=== PATIENT | female | born 1995 | race Caucasian/White ===

== ENCOUNTER 2020-05-19 02:21 | Emergency (ER) | payer SELFPAY ==
[2020-05-19 03:37] LABS: Anion Gap 10 (12-20); Blood Urea Nitrogen 9 mg/dL (9-16); Carbon Dioxide 24 mmol/L (22-29); Chloride 107 mmol/L (96-108); Estimated Glomerular Filt Rate > 60; Glucose Random 103 mg/dL (60-115); Potassium 4.3 mmol/l (3.3-5.1); Sodium 137 mmol/L (135-145)
[2020-05-19 03:38] LABS: Calcium 8.8 mg/dL (8.4-10.2)
[2020-05-19 04:53] LABS: Basophils Absolute Auto 0.1 X10*3/uL (0.0-0.2); MANUAL DIFF FLAG SCAN; PLT CLUMP 1; Platelet Count 202 X10*3/uL (160-400); SCAN SMEAR FLAG 1; White Blood Count 8.7 X10*3/uL (4.8-10.8)
[2020-05-19 05:12] LABS: Hematocrit 38.5 % (37-47); Hemoglobin 12.5 g/dl (12.0-16.0); Mean Corpuscular Hemoglobin 26.9 pg (27.0-33.0); Red Blood Count 4.64 X10*6/uL (4.20-5.50)
[2020-05-19 05:13] LABS: Basophils Percent Auto 0.8 % (0-2); Eosinophils Absolute Auto 0.1 X10*3/uL (0.0-0.4); Eosinophils Percent Auto 1.6 % (0-4); Imm Gran Abs Auto 0.02 X10*3/uL (0.00-0.03); Imm Gran Pct Auto 0.2 % (0.0-0.4); Lymphocytes Absolute Auto 2.1 X10*3/uL (1.2-4.9); Lymphocytes Percent Auto 24.5 % (20-40); Mean Corpuscular HGB Conc 32.5 g/dl (31.0-35.0); Mean Platelet Volume 11.8 fL (9.4-12.3); Monocytes Absolute Auto 0.7 X10*3/uL (0.1-1.2); Monocytes Percent Auto 8.1 % (2-11); Neutrophils Absolute Auto 5.6 X10*3/uL (2.0-8.3); Neutrophils Percent Auto 64.8 % (45-73); Red Cell Distribution Width 12.8 % (11.0-16.0)
[2020-05-19 05:17] LABS: Appearance Urine HAZY; Color Urine YELLOW; Glucose Urine UA NEG (NEG); PH 7.5 (5.0-8.0); Specific Gravity - Urine 1.015 (1.005-1.025); Urine Blood 3+ (NEG); Urine Ketones NEG (NEG); Urine Protein 2+ MG/DL (NEG-TRACE)
[2020-05-19 05:18] LABS: Leukocyte Esterase Urine 2+ (NEG); Nitrite Urine NEG (NEG); RBC Urine 50-75 /HPF (0); UPreg QC Valid YES; Urine Pregnancy NEGATIVE (NEGATIVE)
[2020-05-19 05:19] LABS: Bacteria Urine TRACE /LPF; Squamous Epithelial Cell Urine 1+ /LPF
[2020-05-19 05:43] LABS: SLIDE REVIEW VERIFIED
== END 2020-05-19 03:53 | disposition home or self-care (01) ==
PROVIDERS: Emergency Provider Emergency Medicine
DX: R30.0 Dysuria (principal); R10.30 Lower abdominal pain, unspecified
CPT/HCPCS: 36415; 80048; 81001; 81003; 81025; 85025; 96361; 96374; 99284

== ENCOUNTER 2020-05-29 18:30 | Emergency (ER) | payer SELFPAY ==
[2020-05-29 19:06] VITALS: BP 130/84; PULSE 101; RESP 16; TEMP 36.8; O2SAT 99; BMI 35.2
[2020-05-29 20:46] VITALS: BP 140/83; PULSE 101; RESP 19; TEMP 37.1; O2SAT 99
--- NOTE | 2020-05-29 21:04 | ED_ITS ---
HPI - Anxiety General Chief Complaint: Anxiety Stated Complaint: panic attack Time Seen by Provider: 05/29/20 20:53 Related Data Previous Rx's Medication Instructions Recorded lorazepam [Ativan] 0.5 mg PO BID PRN #10 tab 05/29/20 Allergies Allergy/AdvReac Type Severity Reaction Status Date / Time red dye [RED DYE] Allergy Unknown UNKNOWN Verified 05/29/20 21:15 Review of Systems Review of Systems: Constitutional: No Weight loss, No Fever, No Chills, No Night Sweats, No Fatigue, No Malaise ENT/Mouth: No Hearing loss, No Ear Pain, No Nasal Congestion, No Sinus Pain, No Hoarseness, No sore throat, No Rhinorrhea, No Swallowing Difficulty Eyes: No Eye Pain, No Swelling, No Redness, No Foreign Body, No Discharge, No Vision Changes Cardiovascular: No Chest Pain, No SOB, No Dyspnea on Exertion, No Orthopnea, No Edema, No Palpitations Respiratory: No Cough, No Sputum, No Wheezing, No Smoke Exposure, No Dyspnea Gastrointestinal: No Nausea, No Vomiting, No Diarrhea, No Constipation, No abdominal Pain, No Hematochezia, No Melena Genitourinary: no irregular bleeding, No Dysuria, No Urinary Frequency, No Hematuria, No Urinary Incontinence, No Urgency, No Flank Pain, No Urinary Flow Changes, No Hesitancy Musculoskeletal: No joint pain, No Myalgias, No Joint Swelling Skin: No Skin Lesions, No rash Neuro: No Weakness, No Numbness, No Paresthesias, No Loss of Consciousness, No Dizziness, No Headache Psych: No Anxiety/Panic, No Depression, No SI/HI/AH/VH, No Social Issues, Heme/Lymph: No Bruising, No Bleeding,No Lymphadenopathy Endocrine: No Polyuria, No Polydipsia, No Temperature Intolerance [facility] Past Medical History Attestation statement: The following information was validated with the patient. Medical History Anxiety Asthma Depression Dissociative identity disorder Schizophrenia Scoliosis Social History Social History Smoking Status: Former smoker Use of substances other than those prescribed or required for medical reasons: Yes Substance Use Type: Marijuana Substance Use Frequency: Occasionally Advance Directives: No Advance Directives Information Provided: Yes Physical Exam Vital Signs: Vital Signs: Vital Signs Temp Pulse Resp BP Pulse Ox 05/29/20 20:46 98.8 F 101 H 19 140/83 H 99 05/29/20 19:06 98.3 F 101 H 16 130/84 99 Body Mass Index 35.2 Appearance: Alert. Oriented X3. No acute distress. Eyes: Pupils equal, round and reactive to light. ENT: Pharynx normal. Neck: Normal inspection. Neck supple. CVS: Normal heart rate and rhythm. Pulses normal. Respiratory: No respiratory distress. Breath sounds normal. Abdomen: Soft and nontender. Skin: Skin warm and dry. Normal skin color. Normal skin turgor. Extremities: No lower extremity edema. No lower extremity edema. Neuro: Oriented X 3. No motor deficit. No sensory deficit. Discharge Plan Discharge Clinical Impression: Acute anxiety, Panic disorder, Hyperventilation Patient Disposition: Home, Self-Care Instructions: Anxiety (ED), Panic Attack (ED) Additional Instructions: you were evaluated for anxiety and a panic attack. Please follow-up with [facility] care physician and/or outpatient psychiatry. We provided you with a prescription for Ativan. Please use medication as directed. Thank you for choosing this emergency department for evaluation. Please follow-up with primary care physician as needed. Return to the emergency department for any new, concerning, or worsening symptoms. Prescriptions: New lorazepam [Ativan] 0.5 mg tablet 0.5 mg PO BID PRN (Reason: anxiety) Qty: 10 RF: 0 Interventions: ED Discharge Assessment Last Done: 05/29/20 23:16 Discharge Date/Time: 05/29/20 23:18
[2020-05-29] MEDS: LORazepam 1 MG TABLET 2 MG PO (21:10)
--- NOTE | 2020-05-30 00:32 | ED.ANXIETY ---
HPI - Anxiety General Chief Complaint: Anxiety Stated Complaint: panic attack Time Seen by Provider: 05/29/20 20:53 Source: patient Mode of arrival: ambulatory Limitations: no limitations History of Present Illness HPI narrative: 24-year-old female presents with anxiety and panic. States that she has been feeling significant anxiety for 3 days and started with a panic attack at 2:00 a.m.. She was unable to maintain control of her emotions and does not have any medications to help with her anxiety. her anxiety is accompanied with shortness breath and palpitations. She does have a significant history of anxiety and panic in the past. She does not report any chest pain or pressure, abdominal pain and distention, fevers, chills, nausea, vomiting, diarrhea, constipation, and edema. MD complaint: anxiety, heart racing and shortness of breath Onset (ago): day(s) ( Three) Symptoms: palpitations and sense of impending doom Severity: moderate Quality: constant Place: home History of similar episodes: Yes Provoking factors: emotional stress Relieving factors: nothing Exacerbating factors: thinking about event Associated symptoms: denies other symptoms Related Data Previous Rx's Medication Instructions Recorded lorazepam [Ativan] 0.5 mg PO BID PRN #10 tab 05/29/20 Allergies Allergy/AdvReac Type Severity Reaction Status Date / Time red dye [RED DYE] Allergy Unknown UNKNOWN Verified 05/29/20 21:15 Review of Systems Review of Systems: Constitutional: No Fever, No Chills ENT/Mouth: No Ear Pain, No Nasal Congestion, No sore throat Eyes: No Eye Pain, No Swelling, No Redness Cardiovascular: positive shortness breath No Chest Pain Respiratory: No Cough, No Sputum, No Dyspnea Gastrointestinal: No Nausea, No Vomiting, No Diarrhea, No Hematochezia, No Melena Genitourinary: No Dysuria, No Urinary Frequency, No Hematuria Musculoskeletal: No Myalgias Skin: No Skin Lesions, No rash Neuro: No Weakness, No Numbness, No Paresthesias, No Dizziness, No Headache Psych: positive Anxiety, positive Depression, positive SI/HI Heme/Lymph: No Lymphadenopathy Endocrine: No Polyuria, No Polydipsia PMFSH Past Medical History Attestation statement: The following information was validated with the patient. Medical History Anxiety Asthma Depression Dissociative identity disorder Schizophrenia Scoliosis Social History Social History Smoking Status: Former smoker Use of substances other than those prescribed or required for medical reasons: Yes Substance Use Type: Marijuana Substance Use Frequency: Occasionally Advance Directives: No Advance Directives Information Provided: Yes Physical Exam Vital Signs: Vital Signs: Vital Signs Temp Pulse Resp BP Pulse Ox 05/29/20 20:46 98.8 F 101 H 19 140/83 H 99 05/29/20 19:06 98.3 F 101 H 16 130/84 99 Body Mass Index 35.2 Appearance: Alert. Oriented X3. No acute distress. Eyes: Pupils equal, round and reactive to light. ENT: Pharynx normal. Neck: Normal inspection. Neck supple. CVS: Normal heart rate and rhythm. Pulses normal. Respiratory: No respiratory distress. Breath sounds normal. Abdomen: Soft and nontender. Skin: Skin warm and dry. Normal skin color. Normal skin turgor. Extremities: No lower extremity edema Neuro: Oriented X 3. No motor deficit. No sensory deficit. Course Course Course Narrative: patient is in visible distress, anxiety and panic. We will give p.o. Ativan and monitor. Re-evaluation 1 hour after p.o. Ativan administration. Patient is resting comfortably,Patient in no acute distress, resting comfortably on stretcher. Denies thoughts of hurting herself or others now or in the past. Affect appropriate on exam. Discussed importance of outpatient therapy, and getting medications from mental health clinic/psychiatrist. Will treat anxiety with Ativan 0.5 mg tablets, 10 tablets.. Advised on importance of followup. Patient understands and agrees with plan. MDM - Anxiety Differential Diagnosis Differential diagnosis: Likely hyperventilation, panic disorder and acute anxiety Medical Records Attestation: I reviewed the patient's medical records. Lab Data Attestation: I reviewed the patient's lab results. Discharge Plan Discharge Clinical Impression: Acute anxiety, Panic disorder, Hyperventilation Patient Disposition: Home, Self-Care Instructions: Anxiety (ED), Panic Attack (ED) Additional Instructions: you were evaluated for anxiety and a panic attack. Please follow-up with primary care physician and/or outpatient psychiatry. We provided you with a prescription for Ativan. Please use medication as directed. Thank you for choosing this emergency department for evaluation. Please follow-up with primary care physician as needed. Return to the emergency department for any new, concerning, or worsening symptoms. Prescriptions: New lorazepam [Ativan] 0.5 mg tablet 0.5 mg PO BID PRN (Reason: anxiety) Qty: 10 RF: 0 Interventions: ED Discharge Assessment Last Done: 05/29/20 23:16 Discharge Date/Time: 05/29/20 23:18
== END 2020-05-29 23:18 | disposition home or self-care (01) ==
PROVIDERS: Emergency Provider Emergency Medicine Emergency Medical Services
DX: F41.9 Anxiety disorder, unspecified (principal); F41.0 Panic disorder [episodic paroxysmal anxiety]; R06.4 Hyperventilation; F44.9 Dissociative and conversion disorder, unspecified; F12.90 Cannabis use, unspecified, uncomplicated
CPT/HCPCS: 99283; 99284

== ENCOUNTER 2020-09-17 07:57 | Emergency (ER) | payer MEDICAID, SELFPAY ==
[2020-09-17 08:16] VITALS: BP 133/80; PULSE 102; RESP 18; TEMP 36.7; O2SAT 98; BMI 34.0
--- NOTE | 2020-09-17 08:29 | US_ITS ---
EXAMINATION: ULTRASOUND PELVIS COMPLETE. CLINICAL INFORMATION: Left-sided abdominal/flank pain. COMPARISON: None TECHNIQUE: Transabdominal and transvaginal imaging of pelvis is performed. FINDINGS: The uterus is retroverted and retroflexed measuring 10.4 cm in length, 4.0 cm in AP and 5.8 cm in transverse dimension. There is a hypoechoic lesion in the posterior fundus measuring 3.4 x 3.2 x 4.1 cm. Endometrial thickness is 0.5 cm. Right ovary measures 3.0 x 1.8 x 2.0 cm and volume 5.7 mL Left ovary measures 4.8 x 2.6 x 2.5 cm involving 22.6 mL. There is anechoic cyst measuring 2.8 x 1.8 x 2.3 cm. There is normal arterial and venous flow seen to both ovaries. There is no free fluid. US/US pelvic ovarian doppler IMPRESSION: Solitary uterine fibroid. Simple cyst left ovary. Right ovary is unremarkable. There is no free fluid.
--- NOTE | 2020-09-17 08:29 | US_ITS ---
EXAMINATION: ULTRASOUND PELVIS COMPLETE. CLINICAL INFORMATION: Left-sided abdominal/flank pain. COMPARISON: None TECHNIQUE: Transabdominal and transvaginal imaging of pelvis is performed. FINDINGS: The uterus is retroverted and retroflexed measuring 10.4 cm in length, 4.0 cm in AP and 5.8 cm in transverse dimension. There is a hypoechoic lesion in the posterior fundus measuring 3.4 x 3.2 x 4.1 cm. Endometrial thickness is 0.5 cm. Right ovary measures 3.0 x 1.8 x 2.0 cm and volume 5.7 mL Left ovary measures 4.8 x 2.6 x 2.5 cm involving 22.6 mL. There is anechoic cyst measuring 2.8 x 1.8 x 2.3 cm. There is normal arterial and venous flow seen to both ovaries. There is no free fluid. US/US pelvic complete IMPRESSION: Solitary uterine fibroid. Simple cyst left ovary. Right ovary is unremarkable. There is no free fluid.
--- NOTE | 2020-09-17 08:29 | US_ITS ---
EXAMINATION: US RETROPERITONEAL LIMITED (RENAL ONLY) CLINICAL INFORMATION: Left flank pain.. COMPARISON: CT scan of the abdomen and pelvis dated 08/28/2017. TECHNIQUE: Ultrasound of both kidneys was performed. FINDINGS: RIGHT KIDNEY: 12.0 x 4.6 x 4.8 cm (SAG x AP x TRV). The kidney is normal in size, contour, and echogenicity. Renal cortical thickness is normal. No calculi or focal parenchymal lesions. Mild fullness of the renal pelvis without evidence of hydronephrosis. LEFT KIDNEY: 12.3 x 5.1 x 4.6 cm (SAG x AP x TRV). The kidney is normal in size, contour, and echogenicity. Renal cortical thickness is normal. No calculi or focal parenchymal lesions. Mild fullness of the renal pelvis without evidence of hydronephrosis. US/US renal BI IMPRESSION: Normal renal ultrasound.
[2020-09-17] MEDS: 0.9 % Sodium Chloride 1,000 ML 999 ML IV (08:44)
[2020-09-17 08:49] LABS: Basophils Absolute Auto 0.1 X10*3/uL (0.0-0.2); Basophils Percent Auto 0.8 % (0-2); Eosinophils Absolute Auto 0.1 X10*3/uL (0.0-0.4); Eosinophils Percent Auto 1.5 % (0-4); Hematocrit 36.6 % (37-47); Hemoglobin 11.8 g/dl (12.0-16.0); Imm Gran Abs Auto 0.01 X10*3/uL (0.00-0.03); Imm Gran Pct Auto 0.2 % (0.0-0.4); Lymphocytes Absolute Auto 1.6 X10*3/uL (1.2-4.9); Lymphocytes Percent Auto 25.7 % (20-40); MANUAL DIFF FLAG NO; Mean Corpuscular HGB Conc 32.2 g/dl (31.0-35.0); Mean Corpuscular Hemoglobin 25.9 pg (27.0-33.0); Mean Corpuscular Volume 80.4 fL (80-98); Monocytes Absolute Auto 0.5 X10*3/uL (0.1-1.2); Monocytes Percent Auto 8.3 % (2-11); Neutrophils Absolute Auto 3.9 X10*3/uL (2.0-8.3); Neutrophils Percent Auto 63.5 % (45-73); Platelet Count 197 X10*3/uL (160-400); Red Blood Count 4.55 X10*6/uL (4.20-5.50); Red Cell Distribution Width 13.8 % (11.0-16.0); White Blood Count 6.1 X10*3/uL (4.8-10.8)
--- NOTE | 2020-09-17 08:58 | US_ITS ---
EXAMINATION: ULTRASOUND PELVIS COMPLETE. CLINICAL INFORMATION: Left-sided abdominal/flank pain. COMPARISON: None TECHNIQUE: Transabdominal and transvaginal imaging of pelvis is performed. FINDINGS: The uterus is retroverted and retroflexed measuring 10.4 cm in length, 4.0 cm in AP and 5.8 cm in transverse dimension. There is a hypoechoic lesion in the posterior fundus measuring 3.4 x 3.2 x 4.1 cm. Endometrial thickness is 0.5 cm. Right ovary measures 3.0 x 1.8 x 2.0 cm and volume 5.7 mL Left ovary measures 4.8 x 2.6 x 2.5 cm involving 22.6 mL. There is anechoic cyst measuring 2.8 x 1.8 x 2.3 cm. There is normal arterial and venous flow seen to both ovaries. There is no free fluid. US/US transvaginal IMPRESSION: Solitary uterine fibroid. Simple cyst left ovary. Right ovary is unremarkable. There is no free fluid.
[2020-09-17 09:22] LABS: Alanine Aminotransferase 18 U/L (0-31); Alkaline Phosphatase 50 U/L (39-117); Anion Gap 12 (12-20); Aspartate Amino Transferase 18 U/L (5-31); Bilirubin Total 0.8 mg/dL (0.0-1.0); Blood Urea Nitrogen 7 mg/dL (9-16); Calcium 8.5 mg/dL (8.4-10.2); Carbon Dioxide 24 mmol/L (22-29); Chloride 106 mmol/L (96-108); Creatinine Clr Calc Pharmacy 120.6; Estimated Glomerular Filt Rate > 60; Glucose Random 94 mg/dL (60-115); Potassium 3.9 mmol/L (3.3-5.1); Sodium 138 mmol/L (135-145); Total Protein 6.8 g/dL (6.5-8.0)
[2020-09-17 10:01] VITALS: BP 129/93; PULSE 102; RESP 20; TEMP 36.8; O2SAT 98
[2020-09-17 10:22] LABS: Glucose Urine UA NEG (NEG); Leukocyte Esterase Urine NEG (NEG); Nitrite Urine NEG (NEG); PH 6.5 (5.0-8.0); Specific Gravity - Urine 1.015 (1.005-1.025); Urine Blood NEG (NEG); Urine Ketones NEG (NEG); Urine Protein NEG (NEG-TRACE)
[2020-09-17 10:30] LABS: Appearance Urine CLEAR; Color Urine YELLOW
[2020-09-17 10:31] LABS: UPreg QC Valid YES; Urine Pregnancy NEGATIVE (NEGATIVE)
[2020-09-17 11:15] LABS: RBC Urine 0 /HPF (0); Squamous Epithelial Cell Urine 1+ /LPF; WBC Urine 0-2 /HPF (0-4)
[2020-09-17 11:19] VITALS: BP 126/82; PULSE 98; RESP 18; TEMP 36.8; O2SAT 100
--- NOTE | 2020-09-17 11:20 | PC.NURSE ---
patient a&ox3, pt states her pain is now 0/10 and feels she may have been dehydrated as her pain decreased after fluids were given, vss, will continue to monitor.
--- NOTE | 2020-09-17 11:47 | ED.ABDPAIN ---
HPI - Abdominal Pain General Chief Complaint: Abdominal Pain Stated Complaint: Abd pain Time Seen by Provider: 09/17/20 08:25 Source: patient Mode of arrival: ambulatory Limitations: no limitations History of Present Illness HPI narrative: 24-year-old female with history of anxiety disorder presents today with complaint of 2 days of left lower quadrant abdominal pain feels like slight ache today has slight nausea. Has not taken anything [id number]. There is no associated symptoms. There is no vomiting or diarrhea. No vaginal bleeding or discharge. No dysuria. No recent travel or sick contacts or antibiotic use. MD elicited complaint: abdominal pain Pertinent past history: past UTI Onset (ago): day(s) Pain Consistency: intermittent Location: LLQ Quality: aching Radiation: none Exacerbating factors: nothing Relieving factors: nothing Associated symptoms: denies other symptoms Related Data Previous Rx's Medication Instructions Recorded lorazepam [Ativan] 0.5 mg PO BID PRN #10 tab 05/29/20 ibuprofen 800 mg PO Q8H PRN #15 tab 09/17/20 Allergies Allergy/AdvReac Type Severity Reaction Status Date / Time red dye [RED DYE] Allergy Unknown UNKNOWN Verified 05/29/20 21:15 Review of Systems Review of Systems Constitutional: No Weight loss, No Fever, No Chills, No Night Sweats, No Fatigue, No Malaise ENT/Mouth: No Hearing loss, No Ear Pain, No Nasal Congestion, No Sinus Pain, No Hoarseness, No sore throat, No Rhinorrhea, No Swallowing Difficulty Eyes: No Eye Pain, No Swelling, No Redness, No Foreign Body, No Discharge, No Vision Changes Cardiovascular: No Chest Pain, No SOB, No Dyspnea on Exertion, No Orthopnea, No Edema, No Palpitations Respiratory: No Cough, No Sputum, No Wheezing, No Dyspnea Gastrointestinal: + Nausea, No Vomiting, No Diarrhea, No Constipation, + abdominal Pain, No Hematochezia, No Melena Genitourinary: no irregular bleeding, No Dysuria, No Urinary Frequency, No Hematuria, No Urinary Incontinence, No Urgency, No Flank Pain Musculoskeletal: No joint pain, No Myalgias, No Joint Swelling Skin: No Skin Lesions, No rash Neuro: No Weakness, No Numbness, No Paresthesias, No Loss of Consciousness, No Dizziness, No Headache Psych: No Social Issues Heme/Lymph: No Bruising, No Bleeding,No Lymphadenopathy Endocrine: No Polyuria, No Polydipsia, No Temperature Intolerance Yes all other systems are reviewed and are negative Physical Exam Vital Signs: Vital Signs: Last Vital Signs Temp 98.3 F 09/17/20 11:19 Pulse 98 09/17/20 11:19 Resp 18 09/17/20 11:19 BP 126/82 09/17/20 11:19 Pulse Ox 100 09/17/20 11:19 Body Mass Index 34.0 Reviewed Const: General: cooperative and healthy appearing; No acute distress or intoxicated appearing Nutritional Appearance: average body habitus Orientation/consciousness: patient oriented x3 HENMT: Head: Yes normal to inspection Ears: hearing grossly normal bilaterally Eyes: General: appearance normal, both eyes and all related structures Visual Zavala: normal visual zavala by confrontation Neck: Neck: Yes normal visual inspection, No positive Brudzinski's sign, No positive Kernig's sign and No tender Thyroid: Thyroid normal Chest: Chest palpation & inspection: normal inspection of the chest Resp: Effort & Inspection: normal respiratory effort Auscultation: clear to auscultation bilaterally Cardio: Jugular venous distension: no JVD Rhythm: regular rhythm Heart sounds: S1 normal heart sound present and S2 normal heart sound present GI: Inspection: Yes normal to inspection Palpation (GI): Soft to palpation, nontender and no guarding Percussion: Yes normal to percussion Auscultation: normal bowel sounds : General: Yes no CVA tenderness Back/Spine/Pelvis: Back: no CVA tenderness Skin: General skin exam: no rashes or lesions noted Neuro: General: patient oriented x3 Extrem: General: Yes normal to inspection MDM - Abdominal Pain MDM Narrative Medical decision making narrative: Has been resting very comfortably labs overall stable urine without infection. No leukocytosis. Renal ultrasound/pelvic ovarian Doppler done and pending results. After my re-evaluation after labs she reports to me that her pain resolved after the fluids. Upon re-evaluation abdominal exam remains benign. No peritonitis. No evidence of PID. Differential Diagnosis Differential diagnosis: Likely abdominal pain, calculus of kidney, ovarian cyst and renal colic; Unlikely aortic dissection, acute appendicitis, bowel perforation, constipation, diverticulitis, endometriosis, gastroenteritis, gastritis, mesenteric ischemia, pancreatitis, peptic ulcer disease and small bowel obstruction Medical Records Attestation: I reviewed the patient's medical records. Lab Data Attestation: I reviewed the patient's lab results. Result diagrams: 09/17/20 08:44 09/17/20 08:44 Labs: Lab Results 09/17/20 09/17/20 09/17/20 Range/Units 08:44 08:44 10:00 WBC 6.1 (4.8-10.8) X10*3/uL RBC 4.55 (4.20-5.50) X10*6/uL Hgb 11.8 L (12.0-16.0) g/dl Hct 36.6 L (37-47) % MCV 80.4 (80-98) fL MCH 25.9 L (27.0-33.0) pg MCHC 32.2 (31.0-35.0) g/dl RDW 13.8 (11.0-16.0) % Plt Count 197 (160-400) X10*3/uL MPV 11.0 (9.4-12.3) fL Immature Gran % (Auto) 0.2 (0.0-0.4) % Neut % (Auto) 63.5 (45-73) % Lymph % (Auto) 25.7 (20-40) % [place] % (Auto) 8.3 (2-11) % Eos % (Auto) 1.5 (0-4) % Baso % (Auto) 0.8 (0-2) % Lymph # (Auto) 1.6 (1.2-4.9) X10*3/uL [place] # (Auto) 0.5 (0.1-1.2) X10*3/uL Eos # (Auto) 0.1 (0.0-0.4) X10*3/uL Baso # (Auto) 0.1 (0.0-0.2) X10*3/uL Abs Immat Gran (auto) 0.01 (0.00-0.03) X10*3/uL Absolute Neuts (auto) 3.9 (2.0-8.3) X10*3/uL Absolute Nucleated RBC 0.000 (0.0-0.012) X10*3/uL Nucleated RBC % (auto) 0.0 (0.0-0.2) /100WBC Sodium 138 (135-145) mmol/L Potassium 3.9 (3.3-5.1) mmol/L Chloride 106 (96-108) mmol/L Carbon Dioxide 24 (22-29) mmol/L Anion Gap 12 (12-20) BUN 7 L (9-16) mg/dL Creatinine 0.69 (0.5-1.4) mg/dL Estim Creat Clear Calc 120.6 Estimated GFR > 60 Random Glucose 94 (60-115) mg/dL Calcium 8.5 (8.4-10.2) mg/dL Total Bilirubin 0.8 (0.0-1.0) mg/dL AST 18 (5-31) U/L ALT 18 (0-31) U/L Alkaline Phosphatase 50 (39-117) U/L Total Protein 6.8 (6.5-8.0) g/dL Albumin 4.0 (3.5-5.0) g/dL Urine Color YELLOW Urine Appearance CLEAR Urine pH 6.5 (5.0-8.0) Ur Specific [place] 1.015 (1.005-1.025) Urine Protein NEG (NEG-TRACE) MG/DL Urine Glucose (UA) NEG (NEG) MG/DL Urine Ketones NEG (NEG) MG/DL Urine Blood NEG (NEG) Urine Nitrite NEG (NEG) Ur Leukocyte Esterase NEG (NEG) Urine RBC 0 (0) /HPF Urine WBC 0-2 (0-4) /HPF Ur Squamous Epith Cells 1+ /LPF Urine Bacteria NONE /LPF Urine Test NEGATIVE (NEGATIVE) Imaging Data Renal ultrasound: Radiologist's impression: [place] [id number] ReportSigned Patient: Alexander Broderick#: [id number]: 1995Acct:[id number]/Sex: 24 / FADM Date: 09/17/20Loc: [facility]: Ordering Physician: Ovidio Coe NP Date of Service: 09/17/20 Procedure(s): US renal BI Accession Number(s): [id number] cc: Ovidio Coe NP~ EXAMINATION: US RETROPERITONEAL LIMITED (RENAL ONLY) CLINICAL INFORMATION: Left flank pain.. COMPARISON: CT scan of the abdomen and pelvis dated 08/28/2017. TECHNIQUE: Ultrasound of both kidneys was performed. FINDINGS: RIGHT KIDNEY: 12.0 x 4.6 x 4.8 cm (SAG x AP x TRV). The kidney is normal in size, contour, and echogenicity. Renal cortical thickness is normal. No calculi or focal parenchymal lesions. Mild fullness of the renal pelvis without evidence of hydronephrosis. LEFT KIDNEY: 12.3 x 5.1 x 4.6 cm (SAG x AP x TRV). The kidney is normal in size, contour, and echogenicity. Renal cortical thickness is normal. No calculi or focal parenchymal lesions. Mild fullness of the renal pelvis without evidence of hydronephrosis. US/US renal BI IMPRESSION: Normal renal ultrasound. Dictated By:JENNIFER PUENTE MDSigned By:<Electronically signed by JENNIFER PUENTE MD in OV>09/17/20 0959 DD/ 0829TD/TT: Shirt Maker: BEN Pelvic ultrasound/Doppler: Radiologist's impression: [place] [id number] ReportSigned Patient: Alexander Broderick#: [id number]: 1995Acct:[id number]/Sex: 24 FADM Date: 09/17/20Loc: [address]: Ordering Physician: Ovidio Coe NP Date of Service: 09/17/20 Procedure(s): US pelvic ovarian doppler Accession Number(s): [id number] cc: Ovidio Coe NP~ EXAMINATION: ULTRASOUND PELVIS COMPLETE. CLINICAL INFORMATION: Left-sided abdominal/flank pain. COMPARISON: None TECHNIQUE: Transabdominal and transvaginal imaging of pelvis is performed. FINDINGS: The uterus is retroverted and retroflexed measuring 10.4 cm in length, 4.0 cm in AP and 5.8 cm in transverse dimension. There is a hypoechoic lesion in the posterior fundus measuring 3.4 x 3.2 x 4.1 cm. Endometrial thickness is 0.5 cm. Right ovary measures 3.0 x 1.8 x 2.0 cm and volume 5.7 mL Left ovary measures 4.8 x 2.6 x 2.5 cm involving 22.6 mL. There is anechoic cyst measuring 2.8 x 1.8 x 2.3 cm. There is normal arterial and venous flow seen to both ovaries. There is no free fluid. US/US pelvic ovarian doppler IMPRESSION: Solitary uterine fibroid. Simple cyst left ovary. Right ovary is unremarkable. There is no free fluid. Dictated By:BENNIE BARONE MDSigned By:<Electronically signed by BENNIE BARONE MD in OV>09/17/20 1004 DD/ 0829TD/TT: Shirt Maker: [facility] [place] Discharge Plan Discharge Clinical Impression: Ovarian cyst Qualifiers: Laterality: left Qualified Code(s): N83.202 - Unspecified ovarian cyst, left side Patient Disposition: Home, Self-Care Instructions: Ovarian Cyst (ED) Additional Instructions: Your ultrasound of kidneys was within normal limits The ultrasound of the ovaries show simple cyst/fibroid on the left ovary Ibuprofen as needed for pain discomfort These typically resolve by himself and relatively common Follow-up with her primary care doctor as discussed Return if any concerns or worsening symptoms including worsening abdominal pain, fever, vaginal bleeding Thank you Prescriptions: New ibuprofen 800 mg tablet 800 mg PO Q8H PRN (Reason: pain) Qty: 15 RF: 0 No Action lorazepam [Ativan] 0.5 mg tablet 0.5 mg PO BID PRN (Reason: anxiety) Qty: 10 RF: 0 Referrals: Physician,None [Primary Care Provider] - 1 week (Primary care) PMFSH Past Medical History Medical History Anxiety Asthma Depression Dissociative identity disorder Schizophrenia Scoliosis Social History Social History Smoking Status: Former smoker Smoked in Last 30 Days: No Use of substances other than those prescribed or required for medical reasons: No Substance Use Type: Marijuana Advance Directives: No Advance Directives Information Provided: Yes
== END 2020-09-17 12:21 | disposition home or self-care (01) ==
PROVIDERS: Nurse Practitioner Primary Care; Emergency Provider Emergency Medicine
DX: N83.292 Other ovarian cyst, left side (principal); D25.9 Leiomyoma of uterus, unspecified
CPT/HCPCS: 36415; 76775; 76830; 76856; 80053; 81001; 81025; 85025; 93975; 96360; 99284

== ENCOUNTER 2020-09-22 07:57 | Outpatient (REF) | payer MEDICAID, SELFPAY ==
[2020-09-23 13:14] LABS: C. trachomatis RNA TMA NOT DETECTED (NOT DETECTED); N. gonorrhoeae RNA TMA NOT DETECTED (NOT DETECTED)
== END 2020-09-22 07:58 | disposition home or self-care (01) ==
LOC: HO.LAB 07:57
PROVIDERS: Visit Provider Obstetrics & Gynecology
DX: D25.9 Leiomyoma of uterus, unspecified (principal); N83.292 Other ovarian cyst, left side
CPT/HCPCS: 36415; 87491; 87591; 99202

== ENCOUNTER 2021-03-20 12:33 | Outpatient (REF) | payer OTHER, SELFPAY ==
--- NOTE | ~2021-03-20 | US_ITS ---
EXAMINATION: PELVIC ULTRASOUND CLINICAL INFORMATION: Fibroid COMPARISON: Previous pelvic ultrasound August 2020 TECHNIQUE: Transabdominal and transvaginal pelvic ultrasound was performed. Transvaginal exam was performed for better visualization of the uterus and ovaries. FINDINGS: The uterus is retroverted and measures 10 x 5 x 5.5 cm in dimension. No focal uterine lesion is seen. There is a 4.3 x 3.7 x 4.3 cm anterior right fundal uterine fibroid. This measured 3.4 x 3.2 x 4.1 cm on August 2020 exam. No other focal uterine lesion is seen. Endometrial thickness is normal measuring 0.3 cm. The right ovary is slightly enlarged and measures 3.9 x 4.2 x 3.3 cm, volume 28 mL. There is a minimally complex physiologic 3.3 x 3.1 x 2.3 cm right ovarian cyst with daughter cyst. The left ovary is not identified with certainty. There is a small amount of fluid in the pelvis. US/US pelvic complete IMPRESSION: Retroverted uterus. 4.3 x 3.7 x 4.3 cm right anterior fundal uterine fibroid. 3 cm physiologic right ovarian cyst. Left ovary is not identified with certainty.
--- NOTE | ~2021-03-20 | US_ITS ---
EXAMINATION: PELVIC ULTRASOUND CLINICAL INFORMATION: Fibroid COMPARISON: Previous pelvic ultrasound August 2020 TECHNIQUE: Transabdominal and transvaginal pelvic ultrasound was performed. Transvaginal exam was performed for better visualization of the uterus and ovaries. FINDINGS: The uterus is retroverted and measures 10 x 5 x 5.5 cm in dimension. No focal uterine lesion is seen. There is a 4.3 x 3.7 x 4.3 cm anterior right fundal uterine fibroid. This measured 3.4 x 3.2 x 4.1 cm on August 2020 exam. No other focal uterine lesion is seen. Endometrial thickness is normal measuring 0.3 cm. The right ovary is slightly enlarged and measures 3.9 x 4.2 x 3.3 cm, volume 28 mL. There is a minimally complex physiologic 3.3 x 3.1 x 2.3 cm right ovarian cyst with daughter cyst. The left ovary is not identified with certainty. There is a small amount of fluid in the pelvis. US/US transvaginal IMPRESSION: Retroverted uterus. 4.3 x 3.7 x 4.3 cm right anterior fundal uterine fibroid. 3 cm physiologic right ovarian cyst. Left ovary is not identified with certainty.
== END 2021-03-20 12:34 | disposition home or self-care (01) ==
LOC: HO.US 12:33
PROVIDERS: PCP Internal Medicine; Visit Provider Obstetrics & Gynecology
DX: D21.9 Benign neoplasm of connective and other soft tissue, unspecified (principal)
CPT/HCPCS: 76830; 76856

== ENCOUNTER → 2021-03-27 13:47 | Outpatient (BNVA) | payer OTHER, SELFPAY | PROVIDERS: PCP Internal Medicine; Visit Provider Obstetrics & Gynecology ==

== ENCOUNTER 2021-04-16 14:04 | Emergency (ER) | payer OTHER, SELFPAY ==
[2021-04-16 14:08] VITALS: BP 116/83; PULSE 84; RESP 18; TEMP 36.6; O2SAT 99; BMI 33.2
[2021-04-16] MEDS: Amoxicillin/Potassium Clav 875 MG TABLET PO (14:46)
[2021-04-16] MEDS: Diphth,Pertus(ACell),Tet Adult 0.5 ML SYRINGE IM (14:47)
--- NOTE | 2021-04-16 14:52 | ED.ANIMALBIT ---
HPI - Animal Bite General Chief Complaint: Animal Bite Stated Complaint: animal bite Time Seen by Provider: 04/16/21 14:31 Source: patient Mode of arrival: ambulatory Limitations: no limitations History of Present Illness HPI narrative: 25 y/o female presenting to the ER from home after her cat bit her lower right forearm when she was trying to give it a bath just before arrival. She reports 4 puncture wounds from the bite as well as pain. She cleaned out the bite, applied antibiotic ointment and came to the ER for evaluation. Her cat is up to date on his shots. MD complaint: animal bite Onset (ago): minute(s) Animal: cat Description of animal: household pet Mechanism: bite Location - Extremities: right: forearm Pain description: sharp Severity scale (1-10): 6 Context: provoked Treatments prior to arrival: wound dressing(s), irrigation and antibiotic ointment Related Data Patient tetanus UTD: No Home Medications Medication Instructions Recorded Confirmed etonogestrel 68 mg subdermal SUBDERMAL 09/22/20 12/16/20 implant (Nexplanon) amoxicillin 500 mg capsule 500 mg PO TID 12/16/20 12/16/20 propranolol 20 mg tablet 20 mg PO BID PRN 12/16/20 12/16/20 escitalopram oxalate 20 mg tablet 20 mg PO DAILY 03/27/21 Previous Rx's Medication Instructions Recorded ibuprofen 800 mg tablet 800 mg PO Q8H PRN #15 tab 09/17/20 bupropion HCl 150 mg 24 hr tablet, 150 mg PO QAM 30 Days #30 tab 12/16/20 extended release amoxicillin 875 mg-potassium 1 tab PO Q12H #14 tab 04/16/21 clavulanate 125 mg tablet (Augmentin) Allergies Allergy/AdvReac Type Severity Reaction Status Date / Time red dye [RED DYE] Allergy Unknown UNKNOWN Verified 04/16/21 14:08 Review of Systems Review of Systems: Constitutional: No Fever, No Chills Cardiovascular: No Chest Pain, No SOB Respiratory: No Cough, No Sputum Gastrointestinal: No Nausea, No Vomiting, No Diarrhea, No abdominal Pain Musculoskeletal: No joint pain, + Myalgias Skin: + Skin Lesions, No rash Neuro: + Weakness, No Numbness Psych: + Anxiety/Panic Heme/Lymph: No Bruising, No Lymphadenopathy PMFSH Past Medical History Attestation statement: The following information was validated with the patient. Medical History Anxiety Asthma Depression Dissociative identity disorder Insomnia Left lower quadrant abdominal pain Obesity (BMI 30-39.9) Schizophrenia Scoliosis Surgical History No significant past surgical history Family History Family History Other Family history non-contributory Social History Social History Alcohol intake: current Alcohol intake frequency: holidays/special occasions only Substance Use Type: Marijuana Advance Directives: No Advance Directives Information Provided: No Patient : No Current occupational status: employed Current occupation: works as a sort operations supervisor at a local [employer] Physical Exam Vital Signs: Vital Signs: Last Vital Signs Temp 97.8 F 04/16/21 14:08 Pulse 84 04/16/21 14:08 Resp 18 04/16/21 14:08 BP 116/83 04/16/21 14:08 Pulse Ox 99 04/16/21 14:08 Body Mass Index 33.2 Appearance: Alert. Oriented X3. No acute distress. HEENT: normal inspection CVS: Normal heart rate and rhythm. Pulses normal. Respiratory: No respiratory distress. Skin: Skin warm and dry. Normal skin color. Normal skin turgor. No rashes. Extremities: right distal forearm with 2 punctate lesions on both the vental and dorsal aspects of the arm, tedner to touch. normal flexion and extension, ROM of the wrist. NV intact distally. No ecchymosis Neuro: Oriented X 3. No motor deficit. No sensory deficit. Course Course Course Narrative: 25 y/o female presenting with cat bite to her right forearm. Wound was cleaned well with H2O2 and saline. Normal extensor and flexor tendon function. Tenderness around the bites but no cellulitis at this time. Will start on empiric augmentin. Stable for d/c home. Return precautions discussed. Critical Care Time Critical Care Time Critical Care Time: No Discharge Plan Discharge Clinical Impression: Cat bite Qualifiers: Encounter type: initial encounter Qualified Code(s): W55.01XA - Bitten by cat, initial encounter Patient Disposition: Home, Self-Care Instructions: Animal Bite (ED) Additional Instructions: Keep wound clean and covered. Take the prescribed antibiotic as directed - take 1st dose tonight before bed. If you develop worsening pain, redness, swelling or any other concerning symptoms come back to the ER for further evaluation. Prescriptions: New amoxicillin-pot clavulanate [Augmentin] 875-125 mg tablet 1 tab PO Q12H Qty: 14 RF: 0 No Action ibuprofen 800 mg tablet 800 mg PO Q8H PRN (Reason: pain) Qty: 15 RF: 0 amoxicillin 500 mg capsule 500 mg PO TID RF: 0 propranolol 20 mg tablet 20 mg PO BID PRNRF: 0 bupropion HCl 150 mg tablet extended release 24 hr 150 mg PO QAM 30 Days Qty: 30 RF: 3 Nexplanon 68 mg implant subdermal RF: 0 escitalopram oxalate 20 mg tablet 20 mg PO DAILY RF: 0 Stand Alone Forms: Work/School Release Interventions: ED Discharge Assessment Last Done: 04/16/21 15:13 Discharge Date/Time: 04/16/21 15:14
== END 2021-04-16 15:14 | disposition home or self-care (01) ==
PROVIDERS: Emergency Provider Emergency Medicine; PCP Internal Medicine
DX: S50.871A Other superficial bite of right forearm, initial encounter (principal); M79.631 Pain in right forearm; W55.01XA Bitten by cat, initial encounter; Y93.9 Activity, unspecified; Y92.009 Unspecified place in unspecified non-institutional (private) residence as the place of occurrence of the external cause; Y99.9 Unspecified external cause status; Z79.899 Other long term (current) drug therapy
CPT/HCPCS: 90471; 90715; 96372; 99283

== ENCOUNTER 2021-06-27 10:38 | Outpatient (REF) | payer OTHER, SELFPAY ==
--- NOTE | ~2021-06-27 | US_ITS ---
EXAMINATION: US PELVIS CLINICAL INFORMATION: Follow-up ovarian cyst. COMPARISON: Previous pelvic ultrasound March 2021. TECHNIQUE: Ultrasound of the pelvis is performed using both transabdominal and transvaginal transducers along with Doppler. Transvaginal imaging is performed due to inadequate visualization transabdominally. FINDINGS: The uterus is retroverted and retroflexed and measures 10 x 5 x 6.3 cm in dimension. There is a 4.3 x 3.7 x 4.4 cm right anterior fundal uterine fibroid. No other focal uterine lesion is seen. Endometrial thickness is normal measuring 0.5 cm. The right ovary measures 4 x 2.2 x 1.8 cm. There is a minimally complex right ovarian cyst measuring 1.8 x 1.1 x 1.5 cm. This has a smaller 0.5 cm daughter cyst suggestive of a physiologic right ovarian cyst. This is decreased size from 3.3 x 3.1 x 2.3 cm on March 2021 exam. The left ovary is normal appearing and measures 3.9 x 1.2 x 2.8 cm. There is no fluid in the pelvis. US/US pelvic and transvaginal IMPRESSION: Interval decrease in size in the minimally complex right ovarian cyst , probably a physiologic cyst with daughter cyst. Stable uterine fibroid.
== END 2021-06-27 10:39 | disposition home or self-care (01) ==
LOC: HO.US 10:38
PROVIDERS: Visit Provider Obstetrics & Gynecology
DX: N83.299 Other ovarian cyst, unspecified side (principal)
CPT/HCPCS: 76830; 76856

== ENCOUNTER → 2021-07-12 14:52 | Outpatient (BNVA) | payer OTHER, SELFPAY | PROVIDERS: PCP Internal Medicine; Visit Provider Obstetrics & Gynecology ==

== ENCOUNTER 2021-10-12 10:56 | Outpatient (REF) | payer OTHER, SELFPAY ==
--- NOTE | ~2021-10-12 | US_ITS ---
EXAMINATION: US PELVIS CLINICAL INFORMATION: Ovarian cyst COMPARISON: Previous pelvic ultrasound June 2021 TECHNIQUE: Ultrasound of the pelvis is performed using both transabdominal and transvaginal transducers along with Doppler. Transvaginal imaging is performed due to inadequate visualization transabdominally. FINDINGS: The uterus is retroverted and measures 7.8 x 4.3 x 5.3 cm in dimension. There is a 4.4 x 4 x 4.2 cm hypoechoic lesion in the anterior upper uterine body suggestive of a fibroid. This is similar to previous exam. Endometrial thickness is normal measuring 0.4 cm. The ovaries are normal-appearing. The right ovary measures 3.2 x 1.4 x 2.2 cm. The left ovary measures 3.7 x 2 x 1.7 cm. There is a small amount of fluid in the pelvis. US/US pelvic and transvaginal IMPRESSION: No ovarian cyst is seen. Retroverted uterus and 4 cm stable uterine fibroid.
== END 2021-10-12 10:57 | disposition home or self-care (01) ==
LOC: HO.US 10:56
PROVIDERS: PCP Internal Medicine; Visit Provider Obstetrics & Gynecology
DX: N83.299 Other ovarian cyst, unspecified side (principal)
CPT/HCPCS: 76830; 76856

== ENCOUNTER → 2021-11-13 11:54 | Outpatient (BNVA) | payer OTHER, SELFPAY | PROVIDERS: Visit Provider Obstetrics & Gynecology | DX: N83.299 Other ovarian cyst, unspecified side (principal) | CPT/HCPCS: Q3014 ==

== ENCOUNTER 2021-12-05 12:53 | Outpatient (REF) | payer OTHER, SELFPAY ==
[2021-12-05 17:26] LABS: HCG Quantitative 10979 mIU/mL
[2021-12-06 07:30] LABS: CT PCR NOT DETECTED (Not Detect.); NG PCR NOT DETECTED (Not Detect.)
[2021-12-06 12:10] LABS: BV Int Neg Control Negative (Negative); BV Int Pos Control Positive (Positive)
== END 2021-12-05 12:54 | disposition home or self-care (01) ==
LOC: HO.LAB 12:53
PROVIDERS: PCP Internal Medicine; Visit Provider Advanced Practice Midwife
DX: O26.899 Other specified pregnancy related conditions, unspecified trimester (principal); R10.2 Pelvic and perineal pain
CPT/HCPCS: 36415; 81025; 84702; 87480; 87491; 87510; 87591; 87660; 99212

== ENCOUNTER 2021-12-15 10:54 | Outpatient (REF) | payer OTHER, SELFPAY ==
--- NOTE | ~2021-12-15 | US_ITS ---
EXAMINATION: OBSTETRICAL ULTRASOUND, FIRST TRIMESTER HISTORY: 26-year-old at the 6.3 weeks of gestation Uncertain dates LMP: 10/31/2021, uncertain COMPARISON: 10/12/2021 TECHNIQUE: Real time transabdominal imaging with color and M-mode Doppler. FINDINGS: A single, live IUP CRL of 5.8 mm c/w 6.3wks is noted. Heart Rate: 122 beats per minute. Both maternal ovaries are seen and appear normal. A fibroid measuring 5.1 x 3.7 x 5.4 cm is seen in the right anterior uterine wall. GESTATIONAL AGE: 1. GA from LMP: 6.3 wks 2. GA from AUA: 6.3 wks ESTIMATED DATE OF DELIVERY: 1. RINKU from LMP: 08/07/2022 2. RINKU from AUA: 08/07/2022 US/US OB pelvic and transvaginal IMPRESSION: 1. A single live IUP 2. CRL is consistent with 6.3 weeks of gestation. 3. Normal ovaries 4. Fibroid uterus This note was generated with a voice recognition program. Please excuse any errors which may have been overlooked during my review of this note. Sometimes these errors may affect the content or meaning of a given sentence.
== END 2021-12-15 10:55 | disposition home or self-care (01) ==
LOC: HO.US 10:54
PROVIDERS: Visit Provider Advanced Practice Midwife
DX: Z34.91 Encounter for supervision of normal pregnancy, unspecified, first trimester (principal); Z3A.01 Less than 8 weeks gestation of pregnancy
CPT/HCPCS: 76801; 76817

== ENCOUNTER 2023-05-07 16:01 | Outpatient (AMB) | payer OTHER, SELFPAY ==
[2023-05-07 16:03] VITALS: BP 118/86; PULSE 125; O2SAT 97; BMI 42.9
--- NOTE | 2023-05-07 16:03 | A.OFFPC_ITS ---
Vital Signs 05/07/23 16:03 Height 5 ft 2 in Weight 234 lb 8 oz BMI 42.9 BP 118/86 Blood Pressure Location Lt brachial Position Sitting Pulse 125 H Pulse Source Pulse Oximeter Pulse Oximetry (%) 97 Oxygen Delivery Method Room Air Intake Visit Reasons: BRODY, F/u [place] Bottom Maker Required: No Accompanied by: Self / Same As Patient Allergies red dye [RED DYE] Allergy (Unknown, Verified 08/16/23 14:47) UNKNOWN Medication List - Last Reconciled 05/07/23 by Tyrell Perez MD buspirone 5 mg PO BID escitalopram oxalate 20 mg PO DAILY PNV no.[id number] 400 mcg-35 mg- 25 mg-5 mg ( Gummies) tabs PO PNV no.[id number] 400 mcg-35 mg- 25 mg-5 mg ( Gummies) 1 tab PO DAILY Tobacco use date assessed: 05/07/23 Dental Screening Dental Screen Date: 05/07/23 Did you have a dental visit in the last 12 months?: Yes Did you have a dental problem in the last 6 months where you did not have access to dental care?: No Was dental information given to patient?: Patient has dentist HPI BRODY, F/u HPI Details Patient comes in today for her annual physical examination - has not been back in over 2 years (was last seen in 11/2020) Patient appears to have gained a lot of weight since her last visit, as she weighed about 175 lbs when she was last seen and is now at 234 lbs States that she has been experiencing a recurrent bilateral axillary rash for the past few months States that she has tried switching deodorants recently but did not experience any improvement of her axillary rash so far and that the rash is now also starting to appear on her scalp Has noticed that the only Tx so far that seems to help is an OTC athlete's foot cream Also relates experiencing on and off low back pain lately States that her low back pain started during her most recent and feels even worse now Recalls that she had issues with high blood pressure when she was with her first child back in July 2022 but her blood pressure came back down to normal when she delivered her baby and she did not need to be prescribed any Rx for her high BP back then - was [facility] in [place] for her care then States that she had no problem with her blood sugar all throughout her States that she currently feels okay She denies any headaches or dizziness Denies any chest pains, no shortness of breath No nausea/vomiting, no abdominal pain No change in bowel habits noted Denies any acute urinary symptoms PFSH Medical History (Updated 08/18/23 @ 07:15 by Tyrell Perez MD) Morbid obesity with BMI of 40.0-44.9, adult Obesity (BMI 30-39.9) Left lower quadrant abdominal pain Insomnia Anxiety Schizophrenia Dissociative identity disorder Depression Scoliosis Asthma Surgical History No significant past surgical history Family History Other Family history non-contributory Social History Housing: Apartment Alcohol intake: current Alcohol intake frequency: holidays/special occasions only e-Cigarette/Vaping Use: Never Used Substance Use Type: Marijuana service: No Current occupational status: unemployed Cognitive needs: No Hearing needs: No Vision needs: No Female Reproductive History Menstrual Age of Menarche: 14 Questionnaire PHQ-9 Over the last 2 weeks, how often have you been bothered by any of the following problems? 1. Little interest or pleasure in doing things: several days 2. Feeling down, depressed, or hopeless: several days 3. Trouble falling or staying asleep, or sleeping too much: not at all 4. Feeling tired or having little energy: not at all 5. Poor appetite or overeating: not at all 6. Feeling bad about yourself - or that you are a failure or have let yourself or your family down: not at all 7. Trouble concentrating on things, such as reading the newspaper or watching television: not at all 8. Moving or speaking so slowly that other people could have noticed. Or the opposite - being so fidgety or restless that you have been moving around a lot more than usual: not at all 9. Thoughts that you would be better off or of hurting yourself in some way: not at all Total score: 2 Depression Screening Interpretation: Negative [id number] - PHQ-9 Billing: Yes Source: Developed by Drs. Josh Perez, Rosalina Baez, Valeriano Edouard and colleagues, with an educational lam from [employer]. Thrive Questionnaire Date Thrive assessed: 05/07/23 I am a: Patient What is your living situation today?: I have a steady place to live Within the past 12 months, did the food you bought not last and you didn't have the money to get more?: Never true Within the past 12 months, did you worry whether your food would run out before you got money to buy more?: Never true Do you have trouble paying for medicines?: No Do you have trouble getting transportation to medical appointments?: No Do you have trouble paying your heating and electricity bill?: No Do you have trouble taking care of your child, family member or friend?: No Do you have trouble with day-to-day activities such as bathing, preparing meals, shopping, managing finances, etc.?: No Are you currently unemployed and looking for a job?: No Are you interested in more education?: No Please select the resources that you would like help with: None Currently or been in a relationship where the following occur: no concerns reported AUDIT C Alcohol Use Questionnaire (AUDIT-C) 1. How often do you have a drink containing alcohol?: Monthly or less 2. How many drinks containing alcohol do you have on a typical day when you are drinking?: 1 or 2 3. How often do you have six or more drinks on one occasion?: Never Total Score: 1 Score Reviewed/Action Taken: Yes YRN-7 AMB Questionnaire YRN-7 Date YRN - 7 assessed: 05/07/23 Feeling nervous, anxious, or on edge: 1 = Several days Not being able to stop or control worryin = Several days Worrying too much about different things: 0 = Not at all Trouble relaxin = Not at all Being so restless that it is hard to sit still: 0 = Not at all Becoming easily annoyed or irritable: 0 = Not at all Feeling afraid as if something awful might happen: 0 = Not at all Total YRN-7 score (0-4 normal; 5-9 mild; 10-14 moderate; 15-21 severe): 2 Source: Developed by Drs. Josh Perez, Rosalina Baez, Valeriano Edouard and colleagues, with an educational lam from [employer]. Review of Systems Const Denies chills, Denies fatigue, Denies fever(s), Denies headache(s) and Denies malaise Eyes Denies blurry vision, Denies change in vision, Denies irritation and Denies itchy eyes ENT Denies dysphagia, Denies dizziness, Denies otalgia, Denies headache(s), Denies nasal congestion, Denies neck pain, Denies odynophagia, Denies sinus pain and Denies sore throat Card Denies chest pain, Denies rapid heart rate, Denies irregular heart rhythm, Denies palpitations and Denies dyspnea Resp Denies chest congestion, Denies cough, Denies dyspnea and Denies wheezing GI Denies abdominal pain, Denies bloating, Denies constipation, Denies dysphagia, Denies heartburn, Denies diarrhea, Denies nausea, Denies odynophagia and Denies vomiting Denies hematuria, Denies urinary frequency, Denies dysuria, Denies urinary incontinence and Denies urinary urgency Musc Denies back pain, Denies arthralgias, Denies joint swelling, Denies muscle weakness and Denies neck pain Skin/Breast Details: (+) recurrent rash over the axillary areas bilaterally; also (+) few similar rash on the scalp recently Denies breast pain, Denies breast mass, Denies change in pigmentation, Denies lesions and Denies unusual bruising Neuro Denies dizziness, Denies headache(s) and Denies paresthesias Psych Denies anxiety and Denies depression Endo Denies fatigue and Denies palpitations Ajit/Lymph Denies easy bruising Aller/Immun Denies itchy eyes and Denies wheezing Physical exam (Primary Care) Vital Signs: Last Vital Signs Pulse 125 H 05/07/23 16:03 BP 118/86 05/07/23 16:03 Pulse Ox 97 05/07/23 16:03 Oxygen Delivery Method Room Air 05/07/23 16:03 BMI result Body Mass Index 42.9 Tobacco/Smoking Status: Tobacco use Status Tobacco use date assessed 05/07/23 05/07/23 16:12 e-Cigarette/Vaping Use Never Used 05/07/23 16:12 PHQ-9: PHQ-9 Score PHQ-9: Total score 2 08/18/23 07:07 Depression Screening Interpretation: Negative Thrive Assessment: Date of Thrive Assessment Date Thrive assessed 05/07/23 05/07/23 16:12 Currently or been in a relationship where the following occur: no concerns reported Const General: no acute distress, alert and awake Orientation/consciousness: patient oriented x3 HENMT Head: Yes normocephalic and Yes atraumatic Ears: external ears normal, TM's normal bilaterally and EAC's normal General nose exam: No nasal discharge present Face and sinus: Yes normal facial exam and Yes sinuses nontender Teeth and gingiva: dentition normal Throat: Yes posterior oropharynx normal and Yes tonsils normal (no TP congestion) Eyes Eyelids: Yes eyelids normal Conjunctivae: conjunctivae normal Pupils: Equal, round and reactive pupils present EOM: EOMs intact bilaterally Neck Neck: Yes no lymphadenopathy and Yes supple Thyroid: Thyroid normal Resp Auscultation: clear to auscultation bilaterally, no rales and no wheezes Cardio Rate: regular rate Rhythm: regular rhythm Heart sounds: no murmurs GI Palpation (GI): Soft to palpation, nontender and No hepatosplenomegaly present Auscultation: normal bowel sounds General: Yes no CVA tenderness Back/Spine/Pelvis Back: no CVA tenderness Thoracic/Lumbar Spine: thoracic and lumbar spine normal to inspection Skin Other: (+) patchy erythematous rash over the axillary areas bilaterally, with a couple of similar smaller patches on the scalp Lesions: no lesions Neuro General: patient oriented x3, moves all extremities, no focal motor deficits and CN's II-XI intact bilaterally Cranial nerves: Yes Equal, round and reactive pupils present Cognition (Neuro): normal cognition Gait exam (Neuro): Normal gait present Extrem General: Yes no clubbing, cyanosis or edema Assessment and Plan Assessment & Plan (1) Annual physical exam: Code(s): Z00.00 - Encounter for general adult medical examination without abnormal findings Plan: Check labs (2) Intertrigo: Code(s): L30.4 - Erythema intertrigo Plan: Will start her on Nystatin powder [id number] gm apply to rash TID PRN Will check her FBS and HgbA1c as well for further evaluation - discussed that if her blood sugars high, this can help explain why she more prone to the recurrent rash that she has had lately (3) Asthma: Code(s): J45.909 - Unspecified asthma, uncomplicated Qualifiers: Asthma severity: mild Asthma persistence: intermittent Asthma compli cation type: uncomplicated Qualified Code(s): J45.20 - Mild intermittent asthma, uncomplicated Plan: Controlled - continue Albuterol HFA 1 to 2 inhalations Q 6 hours PRN (4) Insomnia: Code(s): G47.00 - Insomnia, unspecified Qualifiers: Insomnia type: unspecified Qualified Code(s): G47.00 - Insomnia, unspecified Plan: Sleep hygiene reinforced (5) Anxiety: Code(s): F41.9 - Anxiety disorder, unspecified Plan: Continue Buspirone 5 mg BID and Escitalopram 20 mg QD (6) Depression: Code(s): F32.9 - Major depressive disorder, single episode, unspecified Qualifiers: Depression Type: major depressive disorder Major depression recurrence: recurrent Active/Remission status: currently active Major depression episode severity: unspecified Qualified Code(s): F33.9 - Major depressive disorder, recurrent, unspecified Plan: Continue Escitalopram 20 mg QD Follow up with psychiatry as scheduled (7) Morbid obesity with BMI of 40.0-44.9, adult: Code(s): E66.01 - Morbid (severe) obesity due to excess calories; Z68.41 - Body mass index [BMI] 40.0-44.9, adult Plan: Reinforced diet/exercise as tolerated/lose weight - patient has gained weight since her last visit Plan Follow up in 3 months Orders: Orders XR lumbar spine 2-3V 05/14/23 M54.50 - Low back pain, unspecified Complete Blood Count Auto Diff 05/14/23 Z00.00 - Encounter for general adult medical examination without abnormal findings, R63.5 - Abnormal weight gain Lipid Panel 05/14/23 E78.00 - Pure hypercholesterolemia, unspecified, Z00.00 - Encounter for general adult medical examination without abnormal findings, R63.5 - Abnormal weight gain TSH reflex Free T4 05/14/23 Z00.00 - Encounter for general adult medical examination without abnormal findings, R63.5 - Abnormal weight gain Vitamin D 25-OH Total 05/14/23 E55.9 - Vitamin D deficiency, unspecified, Z00.00 - Encounter for general adult medical examination without abnormal findings Hemoglobin A1c 05/14/23 R63.5 - Abnormal weight gain, R73.9 - Hyperglycemia, unspecified Comprehensive [place]. Panel Fast 05/14/23 Z00.00 - Encounter for general adult medical examination without abnormal findings, R63.5 - Abnormal weight gain UA CC w/rflx Micro + Cult 05/14/23 R30.0 - Dysuria, Z00.00 - Encounter for general adult medical examination without abnormal findings Medications: New Nystop (nystatin) 1 appl topical TID 60 grams 2RF rash NS Coding Level of Care Code Est Pt Prev Care 18-39y([id number]) Diagnoses Annual physical exam Z00.00 Intertrigo L30.4 Mild intermittent asthma without complication J45.20 Asthma severity: mild Asthma persistence: intermittent Asthma complication type: uncomplicated Insomnia, unspecified type G47.00 Insomnia type: unspecified Anxiety F41.9 Episode of recurrent major depressive disorder, unspecified depression episode severity F33.9 Depression Type: major depressive disorder Major depression recurrence: recurrent Active/Remission status: currently active Major depression episode severity: unspecified Morbid obesity with BMI of 40.0-44.9, adult E66.01; Z68.41
== END 2023-05-07 17:05 | disposition home or self-care (01) ==
PROVIDERS: PCP Internal Medicine; Visit Provider Internal Medicine
DX: Z00.00 Encounter for general adult medical examination without abnormal findings (principal); F33.9 Major depressive disorder, recurrent, unspecified; Z68.41 Body mass index [BMI] 40.0-44.9, adult; E66.01 Morbid (severe) obesity due to excess calories; L30.4 Erythema intertrigo; J45.20 Mild intermittent asthma, uncomplicated; G47.00 Insomnia, unspecified; F41.9 Anxiety disorder, unspecified
CPT/HCPCS: 99395

== ENCOUNTER 2023-05-14 10:47 | Outpatient (REF) | payer OTHER, SELFPAY ==
--- NOTE | ~2023-05-14 | XR_ITS ---
EXAMINATION: XR LUMBOSACRAL SPINE CLINICAL INFORMATION: Low back pain, unspecified COMPARISON: None available. TECHNIQUE: Three views of the lumbosacral spine. FINDINGS: The vertebral bodies and posterior elements are normal. The disc spaces are preserved there is slight straightening of the usual lumbar lordosis which can be seen with muscle spasm. The paraspinal soft tissues are normal. XR/XR lumbar spine 2-3V IMPRESSION: Muscle spasm.
[2023-05-14 11:01] LABS: MANUAL DIFF FLAG NO
[2023-05-14 11:39] LABS: Appearance Urine Cloudy; Color Urine Yellow; Glucose Urine UA Negative (Negative); Leukocyte Esterase Urine Small (1+) (Negative); Nitrite Urine Negative (Negative); PH 6.5 (5.0-9.0); Specific Gravity - Urine 1.025 (1.005-1.025); UMIC TRIGGER UACC YES; Urine Blood Negative (Negative); Urine Ketones Negative (Negative); Urine Protein Negative (Neg-Trace)
[2023-05-14 11:44] LABS: Basophils Absolute Auto 0.1 X10*3/uL (0.0-0.2); Basophils Percent Auto 0.8 % (0-2); Eosinophils Absolute Auto 0.1 X10*3/uL (0.0-0.4); Eosinophils Percent Auto 1.9 % (0-4); Hematocrit 42.1 % (37.0-47.0); Imm Gran Abs Auto 0.02 X10*3/uL (0.00-0.03); Imm Gran Pct Auto 0.3 % (0.0-0.4); Lymphocytes Absolute Auto 1.7 X10*3/uL (1.2-4.9); Lymphocytes Percent Auto 22.1 % (20-40); Mean Corpuscular HGB Conc 33.3 g/dl (31.0-35.0); Mean Corpuscular Hemoglobin 27.8 pg (27.0-33.0); Mean Corpuscular Volume 83.7 fL (80.0-98.0); Monocytes Absolute Auto 0.6 X10*3/uL (0.1-1.2); Monocytes Percent Auto 7.8 % (2-11); Neutrophils Percent Auto 67.1 % (45-73); Platelet Count 232 X10*3/uL (160-400); Red Blood Count 5.03 X10*6/uL (4.20-5.50); Red Cell Distribution Width 12.8 % (11.0-16.0); White Blood Count 7.5 X10*3/uL (4.8-10.8)
[2023-05-14 11:45] LABS: Bacteria Urine 1+ (None Seen); Hyaline Casts Urine 0-2 /LPF (0-2); RBC Urine 0-2 /HPF (0-2); Squamous Epithelial Cell Urine >20 /HPF (0-2); UACC Culture Trigger YES
[2023-05-14 12:11] LABS: Estimated Average Glucose 103 mg/dL; Hemoglobin A1c % 5.2 % (<6.0)
[2023-05-14 13:03] LABS: Alanine Aminotransferase 44 U/L (0-31); Albumin Level 4.2 g/dL (3.5-5.0); Alkaline Phosphatase 59 U/L (39-117); Anion Gap 13 (12-20); Aspartate Amino Transferase 27 U/L (5-31); Bilirubin Total 0.8 mg/dL (0.0-1.0); Blood Urea Nitrogen 8 mg/dL (9-16); Calcium 9.2 mg/dL (8.4-10.2); Carbon Dioxide 22 mmol/L (22-29); Chloride 106 mmol/L (96-108); Cholesterol 153 mg/dL (<200); Estimated Glomerular Filt Rate > 60; Glucose Fasting 92 mg/dL (60-99); HDL Cholesterol 44 mg/dL (>40); LDL Cholesterol Calculated 83 mg/dL (<100); Potassium 4.1 mmol/L (3.3-5.1); Sodium 137 mmol/L (135-145); Total Protein 7.5 g/dL (6.5-8.0); Triglycerides 131 mg/dL (<150)
[2023-05-14 13:18] LABS: TSH reflex Free T4 1.37 uIU/mL (0.32-4.0); Vitamin D 25-OH Total 30.8 ng/mL (>30)
== END 2023-05-14 10:48 | disposition home or self-care (01) ==
LOC: HO.LAB 10:47
PROVIDERS: PCP Internal Medicine; Visit Provider Internal Medicine
DX: M54.50 Low back pain, unspecified (principal); R63.5 Abnormal weight gain; E78.00 Pure hypercholesterolemia, unspecified; E55.9 Vitamin D deficiency, unspecified; R73.9 Hyperglycemia, unspecified; Z00.00 Encounter for general adult medical examination without abnormal findings
CPT/HCPCS: 36415; 72100; 80053; 80061; 81001; 82306; 83036; 84443; 85025; 87086

== ENCOUNTER 2023-08-16 14:24 | Outpatient (AMB) | payer OTHER, SELFPAY ==
[2023-08-16 14:26] VITALS: BP 124/80; PULSE 121; O2SAT 99; BMI 43.9
--- NOTE | 2023-08-16 14:26 | MHC.PC.OV ---
Vital Signs 08/16/23 14:26 Height 5 ft 2 in Weight 240 lb BMI 43.9 BP 124/80 Blood Pressure Location Lt brachial Position Sitting Pulse 121 H Pulse Source Pulse Oximeter Pulse Oximetry (%) 99 Oxygen Delivery Method Room Air Intake Visit Reasons: 3 month f/u Senior Product Consultant Required: No Accompanied by: Self / Same As Patient Allergies red dye [RED DYE] Allergy (Unknown, Verified 08/16/23 14:47) UNKNOWN Medication List - Last Reconciled 08/16/23 by Tyrell Perez MD buspirone 5 mg PO BID escitalopram oxalate 20 mg PO DAILY Nystop (nystatin) 1 appl topical TID NS PNV no.[id number] 400 mcg-35 mg- 25 mg-5 mg ( Gummies) tabs PO PNV no.[id number] 400 mcg-35 mg- 25 mg-5 mg ( Gummies) 1 tab PO DAILY Tobacco use date assessed: 05/07/23 Dental Screening Dental Screen Date: 08/16/23 Did you have a dental visit in the last 12 months?: No Did you have a dental problem in the last 6 months where you did not have access to dental care?: No Was dental information given to patient?: Patient has dentist HPI 3 month f/u HPI Details Patient comes in today for her follow-up visit States that she feels okay She denies any headaches or dizziness Denies any chest pains, no shortness of breath No nausea /vomiting, no abdominal pain No change in bowel habits noted Needs her Albuterol inhaler Rx refilled Would also like to get her flu shot today [facility] Medical History (Updated 08/18/23 @ 06:36 by Tyrell Perez MD) Morbid obesity with BMI of 40.0-44.9, adult Obesity (BMI 30-39.9) Left lower quadrant abdominal pain Insomnia Anxiety Schizophrenia Dissociative identity disorder Depression Scoliosis Asthma Surgical History No significant past surgical history Family History Other Family history non-contributory Social History Housing: Apartment Alcohol intake: current Alcohol intake frequency: holidays/special occasions only e-Cigarette/Vaping Use: Never Used Substance Use Type: Marijuana service: No Current occupational status: unemployed Cognitive needs: No Hearing needs: No Vision needs: No Female Reproductive History Menstrual Age of Menarche: 14 Questionnaire Thrive Questionnaire Date Thrive assessed: 05/07/23 YRN-7 AMB Questionnaire YRN-7 Date YRN - 7 assessed: 05/07/23 Source: Developed by Drs. Josh Perez, Rosalina Baez, Valeriano Edouard and colleagues, with an educational lam from [employer]. Review of Systems Const Denies chills, Denies fatigue, Denies fever(s) and Denies headache(s) ENT Denies dysphagia, Denies dizziness, Denies otalgia, Denies headache(s), Denies odynophagia and Denies sore throat Card Denies chest pain, Denies palpitations and Denies dyspnea Resp Denies cough and Denies dyspnea GI Denies abdominal pain, Denies constipation, Denies dysphagia, Denies heartburn, Denies diarrhea, Denies nausea, Denies odynophagia and Denies vomiting Denies difficulty voiding, Denies nocturia and Denies dysuria Skin/Breast Denies rash Neuro Denies dizziness and Denies headache(s) Psych Denies anxiety (controlled on current Rx) Endo Denies fatigue and Denies palpitations Physical exam (Primary Care) Vital Signs: Last Vital Signs Pulse 121 H 08/16/23 14:26 BP 124/80 08/16/23 14:26 Pulse Ox 99 08/16/23 14:26 Oxygen Delivery Method Room Air 08/16/23 14:26 BMI result Body Mass Index 43.9 Tobacco/Smoking Status: Tobacco use Status Tobacco use date assessed 05/07/23 08/16/23 14:27 e-Cigarette/Vaping Use Never Used 08/16/23 14:27 Thrive Assessment: Date of Thrive Assessment Date Thrive assessed 05/07/23 08/16/23 14:27 Const General: no acute distress and alert HENMT Ears: TM's normal bilaterally and EAC's normal Throat: Yes posterior oropharynx normal and Yes tonsils normal (no TP congestion) Neck Neck: Yes no lymphadenopathy and Yes supple Resp Auscultation: clear to auscultation bilaterally, no rales and no wheezes Cardio Rate: regular rate Rhythm: regular rhythm Heart sounds: no murmurs GI Palpation (GI): Soft to palpation, nontender and No hepatosplenomegaly present Skin General skin exam: no rashes or lesions noted Extrem General: Yes no clubbing, cyanosis or edema Office Procedures Flu Questionnaire Does the patient have a severe egg allergy?: No Does the patient have severe life threatening allergies?: No Does the patient have a fever or illness today?: No Has the patient ever had Guillain-Sanford Syndrome?: No Has the patient ever had any past reaction to a flu shot?: No Immunizations flu vacc [id number] 6mos up(PF) 60 mcg(15 mcgx4)/0.5 mL IM syringe Performing Provider: Tyrell Perez MD Performing Location: [facility] Administered by: JORGITO Saucedo on 08/16/23 14:37 Dose Route Admin Location Dispensed Lot Number Expiration Date NDC Flavoring Oil Filterer 0.5 mL IM Left Deltoid 0.5 mL [id number] 02/16/24 02309-760-24 [employer] VIS Given Date VIS Provided VIS Publication Date 08/16/23 Single Vaccine 21 Eligibility Eligibility Date Funding Source Not [facility] Eligible 08/16/23 Private Assessment and Plan Assessment & Plan (1) Asthma: Code(s): J45.909 - Unspecified asthma, uncomplicated Qualifiers: Asthma severity: mild Asthma persistence: intermittent Asthma complication type: uncomplicated Qualified Code(s): J45.20 - Mild intermittent asthma, uncomplicated Plan: Continue Albuterol HFA 1 to 2 inhalations Q 6 hours PRN - Rx refilled (2) Insomnia: Code(s): G47.00 - Insomnia, unspecified Qualifiers: Insomnia type: unspecified Qualified Code(s): G47.00 - Insomnia, unspecified Plan: Sleep hygiene reinforced (3) Anxiety: Code(s): F41.9 - Anxiety disorder, unspecified Plan: Continue Buspirone 5 mg BID and Escitalopram 20 mg QD (4) Depression: Code(s): F32.9 - Major depressive disorder, single episode, unspecified Qualifiers: Depression Type: major depressive disorder Major depression recurrence: recurrent Active/Remission status: currently active Major depression episode severity: unspecified Qualified Code(s): F33.9 - Major depressive disorder, recurrent, unspecified Plan: Continue Escitalopram 20 mg QD Follow up with psychiatry as scheduled (5) Morbid obesity with BMI of 40.0-44.9, adult: Code(s): E66.01 - Morbid (severe) obesity due to excess calories; Z68.41 - Body mass index [BMI] 40.0-44.9, adult Plan: Reinforced diet/exercise as tolerated/lose weight - patient has gained some weight again since her last visit Plan Flu vaccine given today To return in 6 months for her annual physical examination Orders: Orders Influenza [id number] Immunization 08/16/23 Z23 - Encounter for immunization Medications: New albuterol sulfate 90 mcg/actuation (Ventolin HFA) 2 puffs inhalation Q6H 30 days PRN 8.5 grams 5RF shortness of breath or wheezing Coding Level of Care Code Est Pt Level 3 (27027) Diagnoses Mild intermittent asthma without complication J45.20 Asthma severity: mild Asthma persistence: intermittent Asthma complication type: uncomplicated Insomnia, unspecified type G47.00 Insomnia type: unspecified Anxiety F41.9 Episode of recurrent major depressive disorder, unspecified depression episode severity F33.9 Depression Type: major depressive disorder Major depression recurrence: recurrent Active/Remission status: currently active Major depression episode severity: unspecified Morbid obesity with BMI of 40.0-44.9, adult E66.01; Z68.41
== END 2023-08-16 14:56 | disposition home or self-care (01) ==
PROVIDERS: PCP Internal Medicine; Visit Provider Internal Medicine
DX: Z23 Encounter for immunization (principal)
CPT/HCPCS: 90471; 90686; 99213